=== PATIENT | female | born 1980 | race Caucasian/White ===

== ENCOUNTER 2018-04-13 07:34 | Observation (INO) | payer OTHER ==
[2018-04-13] MEDS: CEFAZOLIN 2 GM/50 ML (PMX) 50 ML IVPB (06:00)
[2018-04-13] MEDS: SOD CHLORIDE 0.9% 1,000 ML IV (06:00)
[2018-04-13 09:10] LABS: ADD MAN DIFF? NO
[2018-04-13 09:12] LABS: WHITE BLOOD COUNT 5.4 10^3/ul (4.8-10.8)
[2018-04-13 09:12] LABS: BASOPHILS % 0.6 % (0.0-2.0); EOSINOPHILS # 0.1 10^3/ul (0.0-0.5); EOSINOPHILS % 2.1 % (0.0-7.0); HEMATOCRIT 37.4 % (37.0-47.0); HEMOGLOBIN 12.8 g/dl (12.0-16.0); LYMPHOCYTES # 2.1 10^3/ul (0.8-2.9); LYMPHOCYTES % 38.2 % (15.0-51.0); MEAN CORPUSCULAR HGB CONC 34.2 g/dl (32.0-37.0); MEAN CORPUSCULAR VOLUME 84.6 fl (82.0-101.0); MEAN PLATELET VOLUME 9.8 fl (7.4-10.4); MONOCYTE # 0.4 10^3/ul (0.3-0.9); MONOCYTES % 7.5 % (0.0-11.0); NEUTROPHIL # 2.8 10^3/ul (1.6-7.5); NEUTROPHILS % 51.4 % (39.0-77.0); PLATELET COUNT 203 10^3/UL (140-415); RED BLOOD COUNT 4.42 10^6/ul (4.20-5.40); RED CELL DISTRIBUTION WIDTH 11.9 % (11.5-14.5)
[2018-04-13 09:32] LABS: INR 0.93; PROTIME 12.6 Sec (11.9-14.9)
[2018-04-13 09:33] LABS: PARTIAL THROMBOPLASTIN TIME 32.2 Sec (23.0-35.0)
[2018-04-13 09:42] LABS: ALANINE AMINOTRANSFERASE 31 IU/L (13-69); ALBUMIN 3.8 g/dl (3.3-4.9); ALKALINE PHOSPHATASE 46 IU/L (42-121); ANION GAP 9 (5-13); ASPARTATE AMINO TRANSFERASE 22 IU/L (15-46); BILIRUBIN,INDIRECT 0.1 mg/dl (0-1.1); BILIRUBIN,TOTAL 0.1 mg/dl (0.2-1.3); BLOOD UREA NITROGEN 12 mg/dl (7-20); CALCIUM 9.1 mg/dl (8.4-10.2); CARBON DIOXIDE 25 mmol/L (21-31); CHLORIDE 107 mmol/L (97-110); CREATININE 0.66 mg/dl (0.44-1.00); Estimated GFR > 60 mL/min (>60); GLUCOSE 90 mg/dl (70-220); POTASSIUM 3.9 mmol/L (3.5-5.1); SODIUM 141 mmol/L (135-144); TOTAL PROTEIN 6.5 g/dl (6.1-8.1)
[2018-04-13 09:50] LABS: ADD UMIC YES; UR ASCORBIC ACID NEGATIVE (NEGATIVE); UR BILIRUBIN (Dip) NEGATIVE (NEGATIVE); UR BLOOD (Dip) 3+ mg/dL (NEGATIVE); UR CLARITY CLEAR (CLEAR); UR COLOR YELLOW (YELLOW); UR GLUCOSE (Dip) NEGATIVE (NEGATIVE); UR KETONES (Dip) NEGATIVE (NEGATIVE); UR LEUKOCYTE ESTERASE (Dip) NEGATIVE Leu/ul (NEGATIVE); UR MUCUS FEW /HPF (NONE SEEN); UR NITRITE (Dip) NEGATIVE (NEGATIVE); UR RBC 43 /HPF (0-5); UR SPECIFIC GRAVITY (Dip) 1.013 (1.003-1.030); UR SQUAMOUS EPITHELIAL CELL FEW /HPF (FEW); UR TOTAL PROTEIN (Dip) NEGATIVE (NEGATIVE); UR UROBILINOGEN (Dip) NEGATIVE (NEGATIVE); UR WBC 1 /HPF (0-5)
[2018-04-13] MEDS ORDERED: ROCURONIUM 50 MG INJ (10:19)
[2018-04-13] MEDS ORDERED: GLYCOPYRROLATE 0.4 MG INJ (10:19)
[2018-04-13] MEDS ORDERED: PROPOFOL 20 ML (10:19)
[2018-04-13] MEDS ORDERED: FENTAnyl 50 MCG/ML VIAL ×2 (10:19→10:50)
[2018-04-13] MEDS ORDERED: ONDANSETRON 4 MG INJ (10:19)
[2018-04-13] MEDS ORDERED: NEOSTIGMINE 3 MG/3 ML SYRINGE (10:19)
[2018-04-13] MEDS ORDERED: MIDAZOLAM 1 MG/ML 2 ML INJ (10:19)
[2018-04-13] MEDS ORDERED: CEFAZOLIN 1 GM INJ (10:19)
[2018-04-13] MEDS ORDERED: ISOSULFAN BLUE 1% 5 ML INJ SC (10:20)
[2018-04-13] MEDS ORDERED: DIPHENHYDRAMINE 50 MG INJ IV (10:30)
[2018-04-13] MEDS ORDERED: FENTAnyl 50 MCG/ML VIAL IV ×2 (10:30)
[2018-04-13] MEDS ORDERED: LABETALOL HCL 20MG INJ IV (10:30)
[2018-04-13] MEDS ORDERED: OXYCODONE/ACETAMINOPHEN (5/325) TAB PO ×2 (10:30)
[2018-04-13] MEDS ORDERED: MIDAZOLAM 1 MG/ML 2 ML INJ IV (10:30)
[2018-04-13] MEDS ORDERED: ALBUTEROL 0.083% (NEB) 2.5 MG/3 ML AMP HHN (10:30)
[2018-04-13] MEDS ORDERED: hydrALAzine 20 MG INJ IV (10:30)
[2018-04-13] MEDS ORDERED: HYDROmorphONE 1 MG/5 ML IV SYRINGE IV ×3 (10:30)
[2018-04-13] MEDS ORDERED: IPRATROPIUM (NEB) 0.5 MG/2.5 ML AMP HHN (10:30)
[2018-04-13] MEDS ORDERED: TRIMETHOBENZAMIDE 100 MG/ML VIAL IM (10:30)
[2018-04-13] MEDS ORDERED: EPHEDrine SULFATE 50 MG/5 ML SYG IV (10:30)
[2018-04-13] MEDS ORDERED: MEPERIDINE 25 MG INJ IV (10:30)
[2018-04-13] MEDS ORDERED: ONDANSETRON 4 MG INJ IV (12:30)
[2018-04-13] MEDS ORDERED: ACETAMINOPHEN 325 MG TAB PO (12:30)
[2018-04-13] MEDS: FENTAnyl 50 MCG/ML VIAL IV (12:33)
[2018-04-13] MEDS: ONDANSETRON 4 MG INJ IV (12:33)
[2018-04-13] MEDS: D5W-0.45 NACL + KCL 20 MEQ 1,000 ML IV ×3 (14:08→23:41)
[2018-04-13] MEDS: HYDROmorphONE 1 MG/ML SYG SC ×2 (14:37→19:05)
[2018-04-14] MEDS: HYDROCODONE/APAP (5/325) TAB PO ×2 (02:12→09:32)
== END 2018-04-14 13:05 | disposition home or self-care (01) ==
LOC: SDS 07:34 → REC 12:15 → MS1 13:59
DX: C50.911 Malignant neoplasm of unspecified site of right female breast (principal)
CPT/HCPCS: 19301; 80053; 81001; 85025; 85610; 85730; 88307